=== PATIENT | female | born 1940 | race Caucasian/White ===

== ENCOUNTER → 2016-10-28 | Outpatient (CLI) | payer MEDICARE, OTHER | END | disposition home or self-care (01) | LOC: GT 07:58 | PROVIDERS: ATTEND Family Medicine | DX: I50.9 Heart failure, unspecified (principal) ==

== ENCOUNTER → 2016-11-27 | Outpatient (CLI) | payer OTHER | LOC: GT 08:14 | PROVIDERS: ATTEND Family Medicine | DX: D50.9 Iron deficiency anemia, unspecified (principal); I10 Essential (primary) hypertension ==

== ENCOUNTER → 2016-12-02 | Outpatient (CLI) | payer OTHER | END | disposition home or self-care (01) | LOC: GT 07:43 | PROVIDERS: ATTEND Family Medicine | DX: D50.9 Iron deficiency anemia, unspecified (principal); I50.9 Heart failure, unspecified ==

== ENCOUNTER → 2017-01-23 | Outpatient (CLI) | payer OTHER | END | disposition home or self-care (01) | LOC: LAB.O 10:44 | PROVIDERS: ATTEND Family Medicine | DX: D50.9 Iron deficiency anemia, unspecified (principal); I50.9 Heart failure, unspecified; J44.9 Chronic obstructive pulmonary disease, unspecified; M06.9 Rheumatoid arthritis, unspecified; N18.9 Chronic kidney disease, unspecified ==

== ENCOUNTER → 2017-02-05 | Outpatient (CLI) | payer OTHER ==
--- NOTE | 2017-02-05 10:24 | RAD ---
EXAM DESCRIPTION: Ankle,Left 3 Views CLINICAL HISTORY: 76 years, Female, ANKLE PAIN COMPARISON: None. FINDINGS: Bones appear very osteopenic. No discrete fracture line seen. There is slight irregularity inferior lateral malleolus, chronic in appearance. Plantar heel spur. Some calcification and spurring at the Achilles insertion. IMPRESSION: Osteopenic bones without definite fracture or dislocation. Heel spurs noted Electronically signed by: Julio Anglin MD 02/05/2017 10:23 AM CDT
== END | disposition home or self-care (01) ==
LOC: RAD 07:45
PROVIDERS: ATTEND Orthopaedic Surgery
DX: M25.572 Pain in left ankle and joints of left foot (principal)

== ENCOUNTER → 2017-02-06 | Outpatient (CLI) | payer OTHER | END | disposition home or self-care (01) | LOC: YCHH 09:48 | PROVIDERS: ATTEND Family Medicine | DX: E87.5 Hyperkalemia (principal) ==

== ENCOUNTER → 2017-03-05 | Outpatient (CLI) | payer OTHER | LOC: YCHH 10:34 | PROVIDERS: ATTEND Family Medicine | DX: D64.9 Anemia, unspecified (principal); D50.9 Iron deficiency anemia, unspecified; I50.9 Heart failure, unspecified ==

== ENCOUNTER → 2017-04-02 | Outpatient (CLI) | payer MEDICARE, OTHER | END | disposition home or self-care (01) | LOC: YCHH 10:17 | PROVIDERS: ATTEND Family Medicine | DX: D50.9 Iron deficiency anemia, unspecified (principal); M62.81 Muscle weakness (generalized) ==

== ENCOUNTER → 2017-04-23 | Outpatient (CLI) | payer OTHER | LOC: YCHH 09:45 | PROVIDERS: ATTEND Family Medicine | DX: D50.9 Iron deficiency anemia, unspecified (principal); M62.81 Muscle weakness (generalized); I50.9 Heart failure, unspecified ==

== ENCOUNTER → 2017-04-25 | Outpatient (CLI) | payer OTHER | END | disposition home or self-care (01) | LOC: YCHH 10:28 | PROVIDERS: ATTEND Family Medicine | DX: D50.9 Iron deficiency anemia, unspecified (principal); D51.3 Other dietary vitamin B12 deficiency anemia ==

== ENCOUNTER → 2017-05-14 | Outpatient (CLI) | payer MEDICARE | LOC: YCHH 12:53 | PROVIDERS: ATTEND Family Medicine | DX: D50.9 Iron deficiency anemia, unspecified (principal); D64.9 Anemia, unspecified; M62.81 Muscle weakness (generalized); I10 Essential (primary) hypertension; E87.5 Hyperkalemia ==

== ENCOUNTER → 2017-06-20 | Outpatient (CLI) | payer OTHER | END | disposition home or self-care (01) | LOC: YCHH 10:38 | PROVIDERS: ATTEND Family Medicine | DX: D50.9 Iron deficiency anemia, unspecified (principal) ==

== ENCOUNTER → 2017-07-23 | Outpatient (CLI) | payer OTHER | END | disposition home or self-care (01) | LOC: YCHH 11:50 | PROVIDERS: ATTEND Family Medicine | DX: I50.9 Heart failure, unspecified (principal); D50.9 Iron deficiency anemia, unspecified ==

== ENCOUNTER 2017-08-14 01:55 | Emergency (ER) | payer OTHER, MEDICARE ==
[2017-08-14 02:26] VITALS: O2SAT 95
--- NOTE | 2017-08-14 02:54 | RAD ---
EXAM DESCRIPTION: Femur,Right AP and lateral views of the right femur CLINICAL HISTORY: 77 years, Female, rt leg pain COMPARISON: None. FINDINGS: There is a subtle cortical discontinuity at the right femoral head neck junction. There is no additional fracture or dislocation. There is no focal soft tissue swelling. There are no retained opaque foreign bodies. There are advanced degenerative changes throughout the knee joint The bony pelvis is grossly normal in appearance. IMPRESSION: 1. Partially visualized subcapital fracture of the right femoral neck. Dedicated right hip radiographs may be beneficial. 2. Advanced degenerative changes of the right knee joint. Electronically signed by: Rico Shipman MD 08/14/2017 2:53 AM WR[employer]PER [employer] Workstation: [id number]
[2017-08-14 02:59] VITALS: TEMP 97.4
--- NOTE | 2017-08-14 03:04 | ED.PDOC ---
History of Present Illness - General Chief Complaint: Trauma Stated Complaint: rt leg pain, fall Time Seen by Provider: 08/14/17 03:00 Source: patient, RN notes reviewed, Vital Signs reviewed, family Additional Information: Presents to ER via [facility] fron home--pt fell out of bed going to get up to go to bathroom states. Pt states she sleeps on the edge of the bed and with one foot hanging off bed. C/O Rt hip pain--Rt pedal pulses + with cap refill < 3 sec. Rt foot ext. rotation noted. 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 Severity: severe - with movement Improving Factors: immobilization Worsening Factors: movement Associated Symptoms: denies symptoms Allergies/Adverse Reactions: Allergies Allopurinol Allergy (Verified 08/14/17 01:59) Hydroxyzine Allergy (Verified 08/14/17 01:59) Home Medications: Ambulatory Orders ALPRAZolam [Xanax] 0.25 mg PO TID 08/14/17 Acetaminophen W/ Codeine [Tylenol w/Codeine 300-30 mg] 1 tab PO PRN 08/14/17 Albuterol Sulfate [Proair Hfa] 1 inh PO PRN 08/14/17 Arformoterol Tartrate Nebs [Brovana Nebs] 15 mcg NEB PRN 08/14/17 Ascorbic Acid [Vitamin C] 500 mg PO DAILY 08/14/17 Aspirin [Bernardo Low Dose] 81 mg PO DAILY 08/14/17 Calcium-Cholecalciferol [Calcet] 1 tab PO DAILY 08/14/17 Cetirizine HCl 10 mg PO DAILY PRN 08/14/17 Cyanocobalamin [B12] 1,000 mcg PO DAILY 08/14/17 Donepezil HCl [Aricept] 5 mg PO BEDTIME 08/14/17 Ferrous Sulfate [Iron] 1 tablet PO DAILY 08/14/17 Fluticasone Propionate (Nasal) [Flonase] 50 mcg NA PRN 08/14/17 Furosemide [Lasix] 20 mg PO QAM 08/14/17 Gabapentin 600 mg PO BID 08/14/17 Guaifenesin 400 mg PO BID 08/14/17 Lamotrigine [Lamictal] 25 mg PO BID 08/14/17 Levothyroxine Sodium [Synthroid] 112 mcg PO DAILY 12/28/17 Lisinopril 2.5 mg PO PRN 08/14/17 Polyethylene Glycol 3350 [Miralax] 17 gm PO DAILY 08/14/17 Potassium Chloride Tab [K-Dur] 10 meq PO DAILY 08/14/17 QUEtiapine FUMARATE [SEROquel] 150 mg PO BEDTIME 08/14/17 Sucralfate Suspension [Carafate Suspension] 1 gm PO TID 08/14/17 Tiotropium [place] Monohydrate [Spiriva Handihaler] 18 mcg IN DAILY 08/14/17 Tolterodine Tartrate [Detrol LA] 2 mg PO DAILY 08/14/17 Review of Systems - Review of Systems Constitutional: States: no symptoms reported EENTM: States: no symptoms reported Respiratory: States: no symptoms reported Cardiology: States: no symptoms reported Gastrointestinal/Abdominal: States: no symptoms reported Genitourinary: States: no symptoms reported Musculoskeletal: States: see HPI, joint pain - Right Hip/Groin Pain Skin: States: no symptoms reported Neurological: States: no symptoms reported Endocrine: States: no symptoms reported Hematologic/Lymphatic: States: no symptoms reported Past Medical History (General) - Patient Medical History Hx Seizures: Yes Hx Stroke: Yes - Mini Strokes states Hx Dementia: No Hx Asthma: No Hx of COPD: Yes Hx Cardiac Disorders: Yes Hx Congestive Heart Failure: Yes Hx Pacemaker: No Hx Hypertension: Yes Hx Thyroid Disease: Yes Hx Diabetes: No Hx Gastroesophageal Reflux: Yes Hx Renal Disease: Yes - Renal failure x 1 states Hx Cancer: No Hx of HIV: No Hx Hepatitis C: No Hx MRSA: Yes MRSA Source:: not sure Surgical History: Hysterectomy, other - Vaccination History Hx Tetanus, Diphtheria Vaccination: No Hx Influenza Vaccination: Yes Hx Pneumococcal Vaccination: No - Social History Hx Tobacco Use: No Hx Alcohol Use: No Hx Substance Use: No Hx Substance Use Treatment: No Hx Depression: No - Triage Comment ED Triage Comment: Presents to ER via [facility] fron home--pt fell out of bed going to get up to go to bathroom states. Pt states she sleeps on the edge of the bed and with one foot hanging off bed. C/O Rt hip pain--Rt pedal pulses + with cap refill < 3 sec. Rt foot ext. rotation noted. Family Medical History - Family History Mother Living Status: Physical Exam - Physical Exam General Appearance: Alert, Comfortable, No apparent distress - at rest. Moderate Pain with movement of right hip. 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 FINDINGS: There is a subtle cortical discontinuity at the right femoral head neck junction. There is no additional fracture or dislocation. There is no focal soft tissue swelling. There are no retained opaque foreign bodies. There are advanced degenerative changes throughout the knee joint The bony pelvis is grossly normal in appearance. IMPRESSION: 1. Partially visualized subcapital fracture of the right femoral neck. Dedicated right hip radiographs may be beneficial. 2. Advanced degenerative changes of the right knee joint. 08/14/17 03:52 Case discussed with ER Physician at [facility] (Dr. Oneal) at [phone] who accepts transfer to facility with Orthopedic Specialty services available. - Results/Orders Results/Orders: 08/14/17 03:13 IV Care:Saline Lock per Protoc QSHIFT 08/14/17 03:15 EKG STAT 08/14/17 03:45 Pulse Ox, Continuous Monitoring STAT 08/14/17 03:47 Catheter:Ye QSHIFT URINALYSIS Stat 08/14/17 03:48 Lactated Ringers [Lr] 1,000 ml IVS .QD 08/15/17 03:45 Pulse Ox, Continuous Monitoring STAT 08/16/17 03:45 Pulse Ox, Continuous Monitoring STAT 08/17/17 03:45 Pulse Ox, Continuous Monitoring STAT Laboratory Results - last 24 hr 08/14/17 08/14/17 08/14/17 03:35 03:35 03:35 WBC 12.2 H RBC 3.43 L Hgb 10.6 L Hct 32.2 L MCV 94.0 MCH 30.9 MCHC 32.9 L RDW 15.8 H Plt Count 306 MPV 6.4 L Absolute Neuts (auto) 9.80 H Absolute Lymphs (auto) 0.90 L Absolute Monos (auto) 0.90 H Absolute Eos (auto) 0.50 H Absolute Basos (auto) 0.10 Neutrophils % 80.2 H Lymphocytes % 7.5 L Monocytes % 7.3 Eosinophils % 4.3 Basophils % 0.7 PT 11.3 INR 1.000 PTT (SP) 26.6 Sodium 138 Potassium 4.9 Chloride 107 Carbon Dioxide 23 Anion Gap 12.9 BUN 26 H Creatinine 0.90 BUN/Creatinine Ratio 28.9 H Random Glucose 102 Serum Osmolality 280.6 Calcium 8.8 Total Bilirubin 0.3 AST 22 ALT 19 Alkaline Phosphatase 60 Serum Total Protein 6.3 L Albumin 3.4 Globulin 2.9 Albumin/Globulin Ratio 1.2 08/14/17 08/14/17 02:13 02:58 Temperature 97.3 F L 97.4 F L Pulse Rate [ 93 H 85 monitor] Respiratory 20 20 Rate Blood Pressure 160/78 133/70 [Rt arm] O2 Sat by Pulse 95 95 Oximetry Baseline Hgb over the past 9 months ranges from 9.7 - 11.3 g/dL. - EKG/XRAY/CT EKG: Sinus - 88 bpm, no S-T elevation XRAY: hip - Right Hip - Subcapital Femoral Neck Fracture Departure - Departure Clinical Impression: Fracture of femoral neck, right Qualifiers: Encounter type: initial encounter Fracture type: closed Qualified Code(s): S72.001A - Fracture of unspecified part of neck of right femur, initial encounter for closed fracture Time of Disposition: 04:20 Disposition: Transfer to Hospital Condition: Fair Departure Forms: ED Discharge - Pt. Copy, Patient Portal Self Enrollment Instructions: DI for Trauma Referrals: KRISHNA PILLAI [Primary Care Provider] - 1-2 Weeks Home Medications: Ambulatory Orders ALPRAZolam [Xanax] 0.25 mg PO TID 08/14/17 Acetaminophen W/ Codeine [Tylenol w/Codeine 300-30 mg] 1 tab PO PRN 08/14/17 Albuterol Sulfate [Proair Hfa] 1 inh PO PRN 12/28/17 Arformoterol Tartrate Nebs [Brovana Nebs] 15 mcg NEB PRN 08/14/17 Ascorbic Acid [Vitamin C] 500 mg PO DAILY 08/14/17 Aspirin [Bernardo Low Dose] 81 mg PO DAILY 08/14/17 Calcium-Cholecalciferol [Calcet] 1 tab PO DAILY 08/14/17 Cetirizine HCl 10 mg PO DAILY PRN 08/14/17 Cyanocobalamin [B12] 1,000 mcg PO DAILY 08/14/17 Donepezil HCl [Aricept] 5 mg PO BEDTIME 08/14/17 Ferrous Sulfate [Iron] 1 tablet PO DAILY 08/14/17 Fluticasone Propionate (Nasal) [Flonase] 50 mcg NA PRN 08/14/17 Furosemide [Lasix] 20 mg PO QAM 08/14/17 Gabapentin 600 mg PO BID 08/14/17 Guaifenesin 400 mg PO BID 08/14/17 Lamotrigine [Lamictal] 25 mg PO BID 08/14/17 Levothyroxine Sodium [Synthroid] 112 mcg PO DAILY 08/14/17 Lisinopril 2.5 mg PO PRN 08/14/17 Polyethylene Glycol 3350 [Miralax] 17 gm PO DAILY 08/14/17 Potassium Chloride Tab [K-Dur] 10 meq PO DAILY 08/14/17 QUEtiapine FUMARATE [SEROquel] 150 mg PO BEDTIME 08/14/17 Sucralfate Suspension [Carafate Suspension] 1 gm PO TID 08/14/17 Tiotropium [place] Monohydrate [Spiriva Handihaler] 18 mcg IN DAILY 08/14/17 Tolterodine Tartrate [Detrol LA] 2 mg PO DAILY 08/14/17 Transfer to Outside Facility - Transfer Information Accepting Provider:: Dr. Lesa Oneal Accepting Facility: [place] Reason for Transfer: required specialist not available - Orthopedic Surgeon for Femoral Neck Fracture
[2017-08-14] MEDS ORDERED: HYDROmorphone HCL INJ 2 MG/ML VIAL IV ONE (03:44)
[2017-08-14] MEDS ORDERED: LACTATED RINGERS 1,000 ML IVS PRN (03:48)
[2017-08-14 04:54] VITALS: BP 128/60
== END 2017-08-14 04:30 | disposition short-term general hospital (02) ==
LOC: ER 01:55
DX: S72.011A Unspecified intracapsular fracture of right femur, initial encounter for closed fracture (principal); J44.9 Chronic obstructive pulmonary disease, unspecified; I11.0 Hypertensive heart disease with heart failure; I50.9 Heart failure, unspecified; E07.9 Disorder of thyroid, unspecified; K21.9 Gastro-esophageal reflux disease without esophagitis; Z87.448 Personal history of other diseases of urinary system; W06.XXXA Fall from bed, initial encounter; Y92.003 Bedroom of unspecified non-institutional (private) residence as the place of occurrence of the external cause
CPT/HCPCS: 36415; 73551; 80053; 81001; 85025; 85610; 85730; 87086; 87088; 87186; 93005; J1170; J7120

== ENCOUNTER → 2017-11-25 | Outpatient (CLI) | payer OTHER | END | disposition home or self-care (01) | LOC: YCHH 11:41 | PROVIDERS: ATTEND Family Medicine | DX: D50.8 Other iron deficiency anemias (principal); J44.9 Chronic obstructive pulmonary disease, unspecified; D50.9 Iron deficiency anemia, unspecified; E03.9 Hypothyroidism, unspecified ==

== ENCOUNTER → 2017-12-29 | Outpatient (CLI) | payer OTHER | LOC: YCHH 08:59 | PROVIDERS: ATTEND Family Medicine | DX: I50.9 Heart failure, unspecified (principal); D50.9 Iron deficiency anemia, unspecified; I10 Essential (primary) hypertension; D64.9 Anemia, unspecified ==

== ENCOUNTER → 2018-02-12 | Outpatient (CLI) | payer OTHER | LOC: LAB 11:06 | PROVIDERS: ATTEND Family Medicine | DX: I50.9 Heart failure, unspecified (principal); E03.9 Hypothyroidism, unspecified; D50.9 Iron deficiency anemia, unspecified; R79.89 Other specified abnormal findings of blood chemistry; R07.9 Chest pain, unspecified ==

== ENCOUNTER → 2018-02-19 | Outpatient (CLI) | payer OTHER | LOC: YCHH 09:56 | PROVIDERS: ATTEND Family Medicine | DX: E87.5 Hyperkalemia (principal) ==

== ENCOUNTER → 2018-02-24 | Outpatient (CLI) | payer OTHER | LOC: LAB.O 15:38 | PROVIDERS: ATTEND Nurse Practitioner Family | DX: I95.9 Hypotension, unspecified (principal) ==